=== PATIENT | female | born 1950 | race Caucasian/White ===

== ENCOUNTER → 2018-10-29 13:33 | Outpatient (CLI) | payer MEDICARE, OTHER, SELFPAY ==
--- NOTE | 2018-10-29 | DI.MG.S_ITS ---
BILATERAL DIGITAL DIAGNOSTIC MAMMOGRAM 3D/2D WITH AUGMENTATION: 10/29/2018 CLINICAL: Right breast pain. Comparison is made to exams dated: 01/07/2017 mammogram, 04/14/2012 mammogram, and 08/08/2009 mammogram - [facility]. There are scattered fibroglandular elements in both breasts. No significant masses, calcifications, or other findings are seen in either breast. IMPRESSION: NEGATIVE There is no abnormality seen in the right breast to correspond with the pain in the lower aspect, however, clinical followup is recommended. There is no mammographic evidence of malignancy. A 1 year screening mammogram is recommended. This exam was interpreted at Station ID: [id number]. NOTE: For mammograms, a report in lay terms will be sent to the patient. Approximately 15% of breast malignancies will not be visualized mammographically. In the management of a palpable breast mass, a negative mammogram must not discourage biopsy of a clinically suspicious lesion. Electronically Signed By: Jairo brewer/lenore:10/29/2018 15:18:54 letter sent: Clinical Evaluation ACR BI-RADS Category 1: Negative 3341F
== END ==
PROVIDERS: Family Provider Family Medicine; PCP Family Medicine; Visit Provider Family Medicine
DX: R92.8 Other abnormal and inconclusive findings on diagnostic imaging of breast (principal); N64.4 Mastodynia
CPT/HCPCS: 77066; G0279

== ENCOUNTER 2019-07-19 13:21 | Emergency (ER) | payer MEDICARE, OTHER, SELFPAY ==
[2019-07-19 13:30] VITALS: BP 137/89; PULSE 64; RESP 14; TEMP 36.3; O2SAT 99
[2019-07-19 14:00] VITALS: BP 124/70; PULSE 64; RESP 14; O2SAT 98
--- NOTE | 2019-07-19 14:05 | DI.CT.S_ITS ---
PROCEDURE: CT HEAD/BRAIN WO CON INDICATIONS: left arm and leg numbness, hit head a few days ago TECHNIQUE: Noncontrast 4.5 mm thick angled axial sections acquired from the foramen magnum to the vertex, with coronal and sagittal reformats. For radiation dose reduction, the following was used: automated exposure control, adjustment of mA and/or kV according to patient size. COMPARISON: None. FINDINGS: Image quality: Diagnostic. CSF spaces: Basal cisterns are patent. No extra-axial fluid collections. Ventricles are normal in size and shape. Brain: No midline shift. No intracranial masses or hemorrhage. [place]-white matter interface is normal. Incidental note is made of a prominent calcification along the midline falx. Subtle areas of low attenuation are seen within the periventricular and deep white matter of the supratentorial brain. Skull and face: Calvarium and visualized facial bones are intact, without suspicious lesions. Incidental note is made of a prominent jugular on the right, which abuts the right internal auditory canal. Sinuses: Visualized sinuses and mastoids are clear. IMPRESSION: 1. No acute hemorrhage. 2. Probable mild chronic small vessel ischemic changes. Dictated by: Pancho Orantes M.D. on 07/19/2019 at 13:26 Approved by: Pancho Orantes M.D. on 07/19/2019 at 13:28
[2019-07-19 14:30] LABS: Add Manual Diff / Slide Review NO; Basophils Absolute Auto 0 /uL (0-100); Basophils Percent Auto 0.7 % (0-2); Eosinophils Absolute Auto 100 /uL (0-450); Eosinophils Percent Auto 1.6 % (2-4); Hematocrit 37.9 % (36-46); Hemoglobin 13.3 g/dL (12.0-16.0); Lymphocytes Absolute Auto 1600 /uL (1100-4500); Lymphocytes Percent Auto 24.9 % (25-40); Mean Corpuscular HGB Conc 35.1 % (30-36); Mean Corpuscular Hemoglobin 32.5 PG (26-34); Mean Corpuscular Volume 92.8 fL (80-100); Monocytes Absolute Auto 500 /uL (0-900); Monocytes Percent Auto 7.5 % (3-14); Neutrophils Absolute Auto 4300 /uL (1500-7000); Neutrophils Percent Auto 65.3 % (50-75); Platelet Count 265 X10^3/uL (150-400); Red Blood Cell Count 4.08 X10^6/uL (4.0-5.2); Red Cell Distribution Width 13.1 % (11.6-14.8); White Blood Cell Count 6.5 X10^3/uL (4.5-11.0)
--- NOTE | 2019-07-19 14:37 | ED_ITS ---
HPI - Neuro Symptoms/Deficit General Chief Complaint: Neuro Symptoms/Deficit Stated Complaint: L ARM NUMBNESS/PAIN/HEAD Time Seen by Provider: 07/19/19 13:44 Source: patient Mode of arrival: ambulatory Limitations: no limitations History of Present Illness HPI Narrative: Patient is 69-year-old female who presents with left hand numbness and left leg numbness. She says she has had left hand numbness from about her mid forearm down to her fingertips off and on for couple of days. Today she had some left leg tingling. She apparently fell and hit her head no loss of consciousness but has had. She called her PCP who recommended she come to the ED further evaluation. She has no weakness no difficulty speaking no facial droop no other extremity complaints. She felt heart palpitations she has a history of PVCs, she thought she might have had a stroke from her heart palpitation. She no longer has heart palpitations. She takes metoprolol only for palpitations. Onset (ago): day(s) On Anticoagulants: No Associated symptoms: denies other symptoms Related Data Home Medications Medication Instructions Recorded Confirmed metoprolol succinate [Toprol XL] 50 mg PO DAILY #0 01/20/13 07/19/19 clonazepam 0.5 mg PO BID PRN 07/19/19 Allergies Allergy/AdvReac Type Severity Reaction Status Date / Time quinine Allergy Unknown RASH Verified 07/19/19 14:08 Sulfa (Sulfonamide Allergy Unknown RASH Verified 07/19/19 14:08 Antibiotics) codeine AdvReac Severe NAUSEA Verified 07/19/19 14:08 Review of Systems Review of Systems GENERAL: Denies chills, fatigue, malaise, fever, sweats, travel HEENT: Denies sinus pain, ear pain, sore throat, difficulty swallowing, neck pain RESPIRATORY: Denies dyspnea, cough, wheezing, hemoptysis, sputum. CARDIOVASCULAR: Denies chest pain, palpitations, orthopnea, edema GASTROINTESTINAL: Denies nausea, vomiting, abdominal pain, diarrhea, constipation, melena. : Denies dysuria, frequency, incontinence, hematuria, urinary retention, flank pain. MUSCULOSKELETAL: Denies weakness, joint pain, or bony pain SKIN: No rash, no erythema, no pruritus NEUROLOGIC: See HPI PSYCHIATRIC: No concerning psychosocial issues. 12 point review of systems is negative except for those stated above and [facility] Medical History PVCs (premature ventricular contractions) (Acute) Social History Smoking Status: Never smoker Social History Smoking Status: Never smoker Exam Initial Vital Signs Initial Vital Signs: Vital Signs Temperature 97.4 F L 07/19/19 13:30 Pulse Rate 64 07/19/19 13:30 Respiratory Rate 14 07/19/19 13:30 Blood Pressure 137/89 07/19/19 13:30 Pulse Oximetry 99 07/19/19 13:30 GENERAL: Well-appearing, well-nourished and in no acute distress. HEENT: Head atraumatic,EOMI, pupils reactive, face symmetric, moist mucous membranes CARDIOVASCULAR: Regular rate and rhythm without murmurs, rubs or gallops. RESPIRATORY: Breath sounds equal bilaterally, no wheezes rales or rhonchi. ABDOMEN: Soft, nontender. Normoactive bowel sounds all 4 quadrants. No guarding or rebound. EXTREMITIES: Normal range of motion, no clubbing or edema. Neurovascularly intact NEUROLOGICAL: Alert and oriented x4.Normal gait and speech. Cranial nerves II through XII grossly intact. Good ywixou-yr-bwow, good wjxq-tj-kose, strength equal bilaterally, no dysarthria or aphasia, sensation in tact to soft touch bilaterally, no visual changes, no facial droop SKIN: Warm, dry, no laceration, no petechiae, no rashes or lesions. Scores ABCD2 Age >= 60 years: yes Initial BP. Either SBP >= 140 or DBP >= 90.: no Clinical features of the TIA: other symptoms Duration of symptoms: >= 60 minutes History of diabetes: no ABCD2 Score: 3 NIH Stroke Scale Level of Conciousness: Alert, keenly responsive Ask month/age: Answers both questions correctly. Open/close eyes, close hand: Performs both tasks correctly Best gaze horizontal: Normal Visual gonzales: No visual loss Facial palsy: Normal symetrical movement Left arm drift: No drift for full 10 sec Right arm drift: No drift for full 10 sec Left leg drift: No drift for full 10 sec Right leg drift: No drift for full 10 sec Limb ataxia: Absent Sensory on face/arms/legs: Normal, no sensory loss Best language: No aphasia, normal Dysarthria: Normal Extinction or inattention: No abnormality Total NIH Stroke scale score: 0 Course Orders Ordered: ED Orders 07/19/19 14:05 CT head/brain wo con Stat 07/19/19 14:12 EKG-12 Lead Stat 07/19/19 14:20 Basic Metabolic Panel Stat Complete Blood Count AUTO DIFF Stat Partial Thromboplastin Time Stat Prothrombin Time INR Stat 07/19/19 14:40 Urine Drug Screen, Rapid Stat Urine Microscopic Stat Discontinued Medications Aspirin (Aspirin Chew) 324 mg PO NOW ONE Stop: 07/19/19 15:28 Last Admin: 07/19/19 15:45 Dose: 81 mg Sodium Chloride (Normal Saline 0.9%) 1,000 mls @ 150 mls/hr IV CONT ELO Last Infusion: 07/19/19 15:46 Dose: 150 mls/hr Admin: 07/19/19 14:45 Dose: 150 mls/hr Vital Signs - 8 hr 07/19/19 13:30 07/19/19 14:00 07/19/19 15:00 Temperature 97.4 F L Pulse Rate 64 64 62 Respiratory Rate 14 14 16 Blood Pressure 137/89 Blood Pressure [Left Arm] 124/70 132/64 Pulse Oximetry 99 98 98 07/19/19 15:47 Temperature 96.4 F L Pulse Rate 68 Respiratory Rate 18 Blood Pressure 128/64 Blood Pressure [Left Arm] Pulse Oximetry 99 MDM - Neuro Symptoms/Deficit Lab Data Attestation: I reviewed the patient's lab results. Result diagrams: 07/19/19 14:20 07/19/19 14:20 Lab Results 07/19/19 07/19/19 07/19/19 Range/Units 14:20 14:20 14:20 WBC 6.5 (4.5-11.0) X10^3/uL RBC 4.08 (4.0-5.2) X10^6/uL Hgb 13.3 (12.0-16.0) g/dL Hct 37.9 (36-46) % MCV 92.8 (80-100) fL MCH 32.5 (26-34) PG MCHC 35.1 (30-36) % RDW 13.1 (11.6-14.8) % Plt Count 265 (150-400) X10^3/uL Neut % (Auto) 65.3 (50-75) % Lymph % (Auto) 24.9 L (25-40) % [place] % (Auto) 7.5 (3-14) % Eos % (Auto) 1.6 L (2-4) % Baso % (Auto) 0.7 (0-2) % Neut # (Auto) 4300 (6505-5913) /uL Lymph # (Auto) 1600 (4399-4815) /uL [place] # (Auto) 500 (0-900) /uL Eos # (Auto) 100 (0-450) /uL Baso # (Auto) 0 (0-100) /uL PT 11.1 (10.1-12.7) SECONDS INR 1.0 (0.9-1.3) APTT 33 (26.4-36.2) SECONDS Sodium 141 (137-145) mmol/L Potassium 4.0 (3.4-5.1) mmol/L Chloride 106 (98-107) mmol/L Carbon Dioxide 27 (22-32) mmol/L BUN 14 (7-17) mg/dL Creatinine 0.60 (0.52-1.04) mg/dL Estimated GFR > 60.0 (>60) mL/min BUN/Creatinine Ratio 23.3 H (6-22) Glucose 106 (80-110) mg/dL Calcium 9.3 (8.4-10.2) mg/dL Urine RBC (0-5/HPF) Urine WBC (0-5/HPF) Ur Squamous Epith Cells (0-5/HPF) Urine Bacteria (None) Ur Culture Indicated? Urine Opiates Screen (Negative) Ur Oxycodone Screen (Negative) Urine Methadone Screen (Negative) Ur Barbiturates Screen (Negative) U Tricyclic Antidepress (Negative) Ur Phencyclidine Scrn (Negative) Ur Amphetamines Screen (Negative) U Methamphetamines Scrn (Negative) Ur MDMA Scrn (Ecstasy) (Negative) U Benzodiazepines Scrn (Negative) Urine Cocaine Screen (Negative) U Marijuana (THC) Screen (Negative) 07/19/19 07/19/19 Range/Units 14:40 14:40 WBC (4.5-11.0) X10^3/uL RBC (4.0-5.2) X10^6/uL Hgb (12.0-16.0) g/dL Hct (36-46) % MCV (80-100) fL MCH (26-34) PG MCHC (30-36) % RDW (11.6-14.8) % Plt Count (150-400) X10^3/uL Neut % (Auto) (50-75) % Lymph % (Auto) (25-40) % [place] % (Auto) (3-14) % Eos % (Auto) (2-4) % Baso % (Auto) (0-2) % Neut # (Auto) (9837-5061) /uL Lymph # (Auto) (7167-2862) /uL [place] # (Auto) (0-900) /uL Eos # (Auto) (0-450) /uL Baso # (Auto) (0-100) /uL PT (10.1-12.7) SECONDS INR (0.9-1.3) APTT (26.4-36.2) SECONDS Sodium (137-145) mmol/L Potassium (3.4-5.1) mmol/L Chloride (98-107) mmol/L Carbon Dioxide (22-32) mmol/L BUN (7-17) mg/dL Creatinine (0.52-1.04) mg/dL Estimated GFR (>60) mL/min BUN/Creatinine Ratio (6-22) Glucose (80-110) mg/dL Calcium (8.4-10.2) mg/dL Urine RBC None seen (0-5/HPF) Urine WBC 0-1/hpf (0-5/HPF) Ur Squamous Epith Cells 0-1 /hpf (0-5/HPF) Urine Bacteria None seen (None) Ur Culture Indicated? Cult not indicated Urine Opiates Screen Negative (Negative) Ur Oxycodone Screen Negative (Negative) Urine Methadone Screen Negative (Negative) Ur Barbiturates Screen Negative (Negative) U Tricyclic Antidepress Negative (Negative) Ur Phencyclidine Scrn Negative (Negative) Ur Amphetamines Screen Negative (Negative) U Methamphetamines Scrn Negative (Negative) Ur MDMA Scrn (Ecstasy) Negative (Negative) U Benzodiazepines Scrn Negative (Negative) Urine Cocaine Screen Negative (Negative) U Marijuana (THC) Screen Negative (Negative) Point of Care Testing Glucose POC 92 Urine Dip Bedside Urine Glucose Negative Bedside Urine Bilirubin - Negative Bedside Urine Ketone - Negative Urine Specific Perry 1.015 Bedside Urine Occult Blood +/- Bedside Urine pH 5.5 Bedside Urine Protein - Negative Bedside Urine Urobilinogen - Negative Bedside Urine Nitrite - Negative Bedside Urine Leukocytes - Negative Esterase Imaging Data CT scan - head: Radiologist's impression: PROCEDURE: CT HEAD/BRAIN WO CON INDICATIONS: left arm and leg numbness, hit head a few days ago TECHNIQUE: Noncontrast 4.5 mm thick angled axial sections acquired from the foramen magnum to the vertex, with coronal and sagittal reformats. For radiation dose reduction, the following was used: automated exposure control, adjustment of mA and/or kV according to patient size. COMPARISON: None. FINDINGS: Image quality: Diagnostic. CSF spaces: Basal cisterns are patent. No extra-axial fluid collections. Ventricles are normal in size and shape. Brain: No midline shift. No intracranial masses or hemorrhage. [place]-white matter interface is normal. Incidental note is made of a prominent calcification along the midline falx. Subtle areas of low attenuation are seen within the periventricular and deep white matter of the supratentorial brain. Skull and face: Calvarium and visualized facial bones are intact, without suspicious lesions. Incidental note is made of a prominent jugular on the right, which abuts the right internal auditory canal. Sinuses: Visualized sinuses and mastoids are clear. IMPRESSION: 1. No acute hemorrhage. 2. Probable mild chronic small vessel ischemic changes. Dictated by: Pancho Orantes M.D. on 07/19/2019 at 13:26 ECG Data Attestation: I personally reviewed and interpreted this ECG as follows: Prior ECG tracings: not available for review Interpretation: Normal sinus rhythm rate 59 p.r. interval 161 QRS [address] changes no T-wave inversions no priors to compare MDM Narrative Medical decision making narrative: Patient overall has no focal neurologic deficits. She does have possibly some microvascular chronic changes on her head CT. His at this time she has no risk factors for CVA. I recommend that she take at aspirin 81 mg daily and have follow-up with her PCP. Also she may require further outpatient evaluation such as an MRI. I also discussed with her specific warning signs of when to return to the ED. Discharge Plan Departure Patient Disposition: Home Clinical Impression: Peripheral neuropathy Qualifiers: Peripheral neuropathy type: polyneuropathy, unspecified Qualified Code(s): G62.9 - Polyneuropathy, unspecified Discharge Date/Time: 07/19/19 15:48 Interventions: ED Discharge Assessment Last Done: 07/19/19 15:47 Instructions: DI for Transient Ischemic Attack Activity Restrictions/Additional Instructions: *You have been diagnosed with peripheral neuropathy *What to do: At this time blood work and head CT are negative *Continue to take medications as directed Aspirin 81 mg once daily to help prevent stroke and heart attack *Follow up with your primary care provider in 2-3 days *Return to ER if you should have arm or leg weakness facial drooping difficulty speaking visual loss or any new, worsening or concerning symptoms Prescriptions: No Action metoprolol succinate [Toprol XL] 50 MG tablet extended release 24 hr 50 mg PO DAILY Qty: 0 RF: 0 clonazepam 0.5 mg tablet 0.5 mg PO BID PRN (Reason: Anxiety) RF: 0 Referrals: Caitlyn Miles MD [Primary Care Provider] -
[2019-07-19 14:38] LABS: Prothrombin Time 11.1 SECONDS (10.1-12.7)
[2019-07-19 14:40] LABS: PTT Partial Thromboplastin Tim 33 SECONDS (26.4-36.2)
[2019-07-19] MEDS: SODIUM CHLORIDE 0.9% 1,000 ML 150 ML IV (14:45)
[2019-07-19 14:48] LABS: BUN Creatinine Ratio 23.3 (6-22); Blood Urea Nitrogen 14 mg/dL (7-17); Calcium 9.3 mg/dL (8.4-10.2); Carbon Dioxide 27 mmol/L (22-32); Chloride 106 mmol/L (98-107); Estimated Glomerular Filt Rate > 60.0 mL/min (>60); Glucose 106 mg/dL (80-110); HEMOLYSIS < 15 (0-50); Sodium 141 mmol/L (137-145)
[2019-07-19 14:51] LABS: Bacteria Urine None Seen; RBC Urine None Seen (0-5/HPF)
[2019-07-19 14:58] LABS: Urine Amphetamines Negative (Negative); Urine Barbiturates Negative (Negative); Urine Benzodiazepines Negative (Negative); Urine Cocaine Negative (Negative); Urine MDMA Negative (Negative); Urine Methadone Negative (Negative); Urine Methamphetamines Negative (Negative); Urine Morphine/Opi cutoff 2000 Negative (Negative); Urine Oxycodone Negative (Negative); Urine Phencyclidine Negative (Negative); Urine Tetrahydrocannabinol Negative (Negative); Urine Tricyclic Antidepressant Negative (Negative)
[2019-07-19 15:00] VITALS: BP 132/64; PULSE 62; RESP 16; O2SAT 98
[2019-07-19 15:01] LABS: Culture Indicated Urine Cult Not Indicated; Squamous Epithelial Cell Urine 0-1 /HPF (0-5/HPF); WBC Urine 0-1/HPF (0-5/HPF)
[2019-07-19] MEDS: ASPIRIN 81 MG TAB 324 MG PO (15:45)
[2019-07-19 15:47] VITALS: BP 128/64; PULSE 68; RESP 18; TEMP 35.8; O2SAT 99
== END 2019-07-19 15:48 | disposition home or self-care (01) ==
PROVIDERS: Emergency Provider Emergency Medicine; PCP Internal Medicine
DX: G62.9 Polyneuropathy, unspecified (principal)
CPT/HCPCS: 36591; 70450; 80048; 80305; 81003; 81015; 82962; 85025; 85610; 85730; 93005; 96360; 99283; 99285

== ENCOUNTER → 2019-07-21 09:15 | Outpatient (CLI) | payer MEDICARE, OTHER, SELFPAY ==
[2019-07-21 10:50] LABS: Add Manual Diff / Slide Review NO; Basophils Absolute Auto 0 /uL (0-100); Basophils Percent Auto 0.5 % (0-2); Eosinophils Absolute Auto 200 /uL (0-450); Eosinophils Percent Auto 2.6 % (2-4); Hematocrit 39.8 % (36-46); Hemoglobin 13.8 g/dL (12.0-16.0); Lymphocytes Absolute Auto 2000 /uL (1100-4500); Mean Corpuscular HGB Conc 34.8 % (30-36); Mean Corpuscular Hemoglobin 32.4 PG (26-34); Mean Corpuscular Volume 93.2 fL (80-100); Monocytes Absolute Auto 600 /uL (0-900); Monocytes Percent Auto 8.3 % (3-14); Neutrophils Absolute Auto 4300 /uL (1500-7000); Neutrophils Percent Auto 60.6 % (50-75); Platelet Count 285 X10^3/uL (150-400); Red Blood Cell Count 4.27 X10^6/uL (4.0-5.2); Red Cell Distribution Width 13.3 % (11.6-14.8)
[2019-07-21 11:30] LABS: Alanine Aminotransferase 16 IU/L (9-52); Albumin 4.4 g/dL (3.5-5.0); Albumin Globulin Ratio 1.5 (1.0-2.8); Alkaline Phosphatase 73 U/L (38-126); Aspartate Aminotransferase 25 IU/L (14-36); Bilirubin Total 0.7 mg/dL (0.2-1.3); Blood Urea Nitrogen 12 mg/dL (7-17); Calcium 9.7 mg/dL (8.4-10.2); Carbon Dioxide 27 mmol/L (22-32); Chloride 103 mmol/L (98-107); Estimated Glomerular Filt Rate > 60.0 mL/min (>60); Globulin 2.9 g/dL (1.7-4.1); Glucose 85 mg/dL (80-110); HEMOLYSIS < 15 (0-50); Potassium 4.5 mmol/L (3.4-5.1); Sodium 139 mmol/L (137-145); Total Protein 7.3 g/dL (6.3-8.2)
[2019-07-21 11:46] LABS: Free T3, Triiodothyronine Free 3.43 pg/mL (2.77-5.27); Free T4, Direct Thyroxine 0.96 ng/dL (0.78-2.19)
[2019-07-21 12:00] LABS: Thyroid Stimulating Hormone 3.92 uIU/mL (0.47-4.68)
== END ==
PROVIDERS: PCP Internal Medicine; Visit Provider Internal Medicine
DX: R00.2 Palpitations (principal)
CPT/HCPCS: 36415; 80053; 84439; 84443; 84481; 85025

== ENCOUNTER → 2019-07-29 11:23 | Outpatient (CLI) | payer MEDICARE, OTHER, SELFPAY ==
--- NOTE | 2019-07-29 | DI.MRI.S_ITS ---
PROCEDURE: MR STROKE Pre- and post-contrast brain MRI, non-contrast brain MR angiogram, pre- and postcontrast neck MR angiogram INDICATIONS: Transient cerebral ischemic attack, unspecified TECHNIQUE: Brain: Noncontrast axial T1 spin echo, axial T2 fast spin echo, sagittal and axial FLAIR, coronal T2 fast spin echo, axial gradient echo, axial diffusion and ADC through the brain. After the administration of contrast, axial 3D VIBE of the cranial vasculature and brain. Brain MRA: Non-contrast 3-D time of flight MR angiogram, with multiple khcdgeu-dhldutdph-zvmiztodzx (MIP) reformats performed. Neck MRA: Axial and sagittal TruFISP through the neck. Coronal dynamic MR angiogram during administration of contrast in the arterial and venous phases, with 3-dimenstional uesnerr-rtuknwbvx-dqcvsarpxe (MIP) reformats constructed from subtraction images. COMPARISON: Noncontrast head CT 07/19/2019 FINDINGS: Image quality: Excellent. BRAIN: CSF spaces: Ventricles are normal in size and shape. Basal cisterns are patent. No extra-axial fluid collections. Brain: No intracranial bleeds or mass effects. [place]-white matter interface is normal. Diffusion weighted images show no acute ischemic insults. Brainstem appears normal. Normal intravascular flow voids are present. No abnormal intracranial enhancement. Calcification of the flax. Skull and face: Calvarial marrow signal is normal. Orbits appear normal. Sinuses: Sinuses and mastoids are clear. BRAIN MR ANGIOGRAM: Anterior circulation: Intracranial internal carotid arteries are normal in size and enhancement. The flow within the paired anterior cerebral arteries is normal and symmetric. The flow within the middle cerebral arteries is normal and symmetric. The anterior communicating artery is seen. No stenoses, occlusions, or aneurysms. Posterior circulation: The visualized portions of the vertebral arteries demonstrate normal caliber, and join to form a normal appearing basilar artery. The flow within the posterior cerebral arteries is normal and symmetric. Posterior communicating arteries are seen. No stenoses, occlusions, or aneurysms. NECK MR ANGIOGRAM: Carotids: Great vessels demonstrate a conventional anatomy as they arise from the aortic arch. The origins of the common carotid arteries appear patent. The calibers and courses of both common carotid arteries are normal. The bifurcation regions appear normal bilaterally. The internal carotid arteries demonstrate normal course and caliber. Posterior circulation: The origins of the vertebral arteries appear patent. More superior portions of both vertebral arteries demonstrate normal course and caliber, and join to form a normal appearing basilar artery. Miscellaneous: Subclavian arteries appear patent. Pre-contrast images through the neck show no soft tissue abnormalities. IMPRESSION: BRAIN MRI: No acute infarct. BRAIN MR ANGIOGRAM: No large vessel filling defect. No significant stenosis or aneurysm. NECK MR ANGIOGRAM: No significant stenosis. No dissection seen. Dictated by: Joshua Fragoso M.D. on 07/29/2019 at 17:25 Approved by: Joshua Fragoso M.D. on 07/29/2019 at 17:33
== END ==
PROVIDERS: PCP Internal Medicine; Visit Provider Internal Medicine
DX: G45.9 Transient cerebral ischemic attack, unspecified (principal)
CPT/HCPCS: 70548; 70553; A9579

== ENCOUNTER → 2019-08-04 08:05 | Outpatient (CLI) | payer MEDICARE, OTHER, SELFPAY ==
--- NOTE | 2019-08-04 | DI.ECHO.S_ITS ---
[facility] +---------+ : : [address] : : : : [place], [place] : : : : [id number] : : : : Phone: [phone] Echocardiogram Report + + :Name: CORNELL JAY Study Date: 08/04/2019 Height: 66 in : :[facility] Exam Location: [facility] Weight: 154 lb : : Gender: Female BSA: 1.8 m2 : :: 1950 Age: 69 yrs BP: 105/65 mmHg: :Reason For Study: TIA : : Performed By: Oscar Keane : :Referring: KARLA RIVERO L : + + Interpretation Summary Normal sinus rhythm. Normal LV size, wall thickness, wall motion and LV systolic function. EF is 60-65%. Mild LA enlargement; otherwise normal chamber sizes. No significant valvular abnormalities. No prior study available for comparison. Procedure: A two-dimensional transthoracic echocardiogram with color flow and Doppler was performed. The study quality was technically adequate. Images from the parasternal window were difficult to obtain and are suboptimal in quality. There is no prior echocardiogram noted for this patient. The patient was in normal sinus rhythm during the exam. The patient had occasional PVCs during the exam. Left Ventricle: The left ventricle is normal in size. There is normal left ventricular wall thickness. The ejection fraction is estimated to be 60-65%. There are no focal wall motion abnormalities. Right Ventricle: The right ventricle is normal in size and function. Atria: The left atrium is mildly dilated. Right atrial size is normal. The interatrial septum is intact with no evidence for an atrial septal defect. Mitral Valve: There is a flat closure plane of the the mitral valve leaflets. There is trace mitral regurgitation. Aortic Valve: The aortic valve is trileaflet. The aortic valve opens well. No aortic regurgitation is present. Tricuspid Valve: The tricuspid valve is normal in structure and function. There is trace tricuspid regurgitation. The right ventricular systolic pressure is estimated to be at least 22 mmHg based on an estimated right atrial pressure of 3 mm Hg. Pulmonic Valve: The pulmonic valve is not well visualized. Great Vessels: The aortic root is normal size. The dimensions of the ascending aorta are normal. The pulmonary artery is normal size. The IVC is of normal diameter and collapses greater than 50% with a sniff. This suggests a low right atrial pressure of 3 mm Hg. Pericardium/ Pleura There is no pericardial effusion. There is no pleural effusion. MMode/2D Measurements & Calculations LVIDd: 4.4 cm LVOT diam: 2.2 cm LVIDs: 2.9 cm Ao root diam: 3.4 cm FS: 34.6 % Aortic Jxn: 2.7 cm EPSS: 0.73 cm asc Aorta Diam: 3.3 cm IVSd: 0.87 cm Ao Arch Diam (Prox Trans): 2.8 cm LVPWd: 0.69 cm LV villeda. diameter/BSA (cm/m^2): 2.5 LV sys. diameter/BSA (cm/m^2): 1.6 LA A2 area: 22.1 cm2 RA long axis: 4.5 cm LA A4 area: 20.0 cm2 RA area: 14.6 cm2 LA length (vol): 5.6 cm RA vol: 40.2 ml LA vol: 67.2 ml RA : 22.5 ml/m2 LA vol index: 37.6 ml/m2 IVC diam: 1.8 cm Doppler Measurements & Calculations Ao V2 max: 148.4 cm/sec LVOT Max Enrrique: 109.0 cm/sec Ao V2 mean: 116.5 cm/sec LV V1 max P.8 mmHg Ao max P.8 mmHg LV V1 VTI: 26.8 cm Ao mean P.6 mmHg FAM(I,D): 3.2 cm2 Ao V2 VTI: 31.0 cm FAM(V,D): 2.7 cm2 sev ratio: 0.86 FAM indexed to BSA (cm^2/m^2): 1.8 MV E max enrrique: 94.4 cm/sec TR max enrrique: 217.7 cm/sec MV A max enrrique: 104.9 cm/sec TR max P.9 mmHg MV E/A: 0.90 PA V2 max: 69.9 cm/sec Med Peak E' Enrrique: 4.1 cm/sec PA V2 mean: 47.5 cm/sec E/E' med: 22.9 PA mean P.0 mmHg Lat Peak E' Enrrique: 6.2 cm/sec PA pr(Accel): 29.1 mmHg E/E' lat: 15.2 PA Accel Time: 0.11 sec E/e' average: 19.1 MV dec time: 0.23 sec SV(LVOT): 100.3 ml Electronically signed by: Selina Barajas M.D. on Reading Physician:08/05/2019 04:31 AM
== END ==
PROVIDERS: PCP Internal Medicine; Visit Provider Internal Medicine
DX: G45.9 Transient cerebral ischemic attack, unspecified (principal)
CPT/HCPCS: 93306

== ENCOUNTER → 2020-01-05 09:12 | Outpatient (CLI) | payer MEDICARE, SELFPAY ==
--- NOTE | 2020-01-05 | DI.MG.S_ITS ---
BILATERAL DIGITAL SCREENING MAMMOGRAM 3D/2D WITH CAD WITH AUGMENTATION: 01/05/2020 CLINICAL: Patient presents for routine screening. S/P bilateral augmentation. Family history of breast cancer. Comparison is made to exams dated: 10/29/2018 mammogram - [facility], 01/08/2017 mammogram, and 01/07/2017 mammogram - [facility]. There are scattered fibroglandular elements in both breasts. Current study was also evaluated with a Computer Aided Detection (CAD) system. Bilateral breast implants are intact. No significant masses, calcifications, or other findings are seen in either breast. There has been no significant interval change. IMPRESSION: NEGATIVE There is no mammographic evidence of malignancy. A 1 year screening mammogram is recommended. This exam was interpreted at Station ID: [id number]. NOTE: For mammograms, a report in lay terms will be sent to the patient. Approximately 15% of breast malignancies will not be visualized mammographically. In the management of a palpable breast mass, a negative mammogram must not discourage biopsy of a clinically suspicious lesion. Electronically Signed By: Jairo brewer/lenore:01/05/2020 10:07:31 letter sent: Normal Exam ACR BI-RADS Category 1: Negative 3341F
== END ==
PROVIDERS: PCP Internal Medicine; Referring Provider Internal Medicine; Visit Provider Internal Medicine
DX: Z12.31 Encounter for screening mammogram for malignant neoplasm of breast (principal); Z85.3 Personal history of malignant neoplasm of breast; Z98.82 Breast implant status
CPT/HCPCS: 77063; 77067

== ENCOUNTER → 2020-03-08 07:41 | Outpatient (CLI) | payer MEDICARE, OTHER, SELFPAY ==
[2020-03-08 08:32] LABS: Alanine Aminotransferase 23 IU/L (<35); Albumin 4.7 g/dL (3.5-5.0); Albumin Globulin Ratio 1.5 (1.0-2.8); Alkaline Phosphatase 73 U/L (38-126); Aspartate Aminotransferase 28 IU/L (14-36); BUN Creatinine Ratio 30.5 (6-22); Bilirubin Total 0.8 mg/dL (0.2-1.3); Blood Urea Nitrogen 18 mg/dL (7-17); Calcium 9.6 mg/dL (8.4-10.2); Carbon Dioxide 28 mmol/L (22-32); Chloride 104 mmol/L (98-107); Cholesterol 208 mg/dL (140-199); Estimated Glomerular Filt Rate > 60.0 mL/min (>60); Globulin 3.1 g/dL (1.7-4.1); Glucose 93 mg/dL (80-110); HDL Cholesterol 46 mg/dL (40-60); HEMOLYSIS < 15 (0-50); LDL Cholesterol Calculated 144 mg/dL (<100); Potassium 4.3 mmol/L (3.4-5.1); Sodium 141 mmol/L (137-145); Total Protein 7.8 g/dL (6.3-8.2); Triglycerides 92 mg/dL (35-150)
[2020-03-08 08:36] LABS: High Sensitivity CRP - Cardiac 0.2 mg/L (1.0-3.0)
[2020-03-08 09:01] LABS: TSH w/ Reflex to FT4 4.84 uIU/mL (0.47-4.68)
[2020-03-08 09:31] LABS: Free T4, Direct Thyroxine 0.86 ng/dL (0.78-2.19)
[2020-03-09 07:17] LABS: Apolipoprotein A1 163 mg/dL (116-209); Apolipoprotein B 105 mg/dL (<90)
== END ==
PROVIDERS: PCP Internal Medicine; Referring Provider Internal Medicine; Visit Provider Internal Medicine
DX: E78.5 Hyperlipidemia, unspecified (principal); I25.10 Atherosclerotic heart disease of native coronary artery without angina pectoris; R79.89 Other specified abnormal findings of blood chemistry
CPT/HCPCS: 36415; 80053; 80061; 82172; 84439; 84443; 86140

== ENCOUNTER → 2020-05-30 11:21 | Outpatient (CLI) | payer MEDICARE, OTHER, SELFPAY ==
[2020-05-30 13:31] LABS: Alanine Aminotransferase 17 IU/L (<35); Albumin 4.6 g/dL (3.5-5.0); Albumin Globulin Ratio 1.8 (1.0-2.8); Alkaline Phosphatase 80 U/L (38-126); Aspartate Aminotransferase 25 IU/L (14-36); BUN Creatinine Ratio 30.5 (6-22); Bilirubin Total 0.7 mg/dL (0.2-1.3); Blood Urea Nitrogen 18 mg/dL (7-17); Calcium 9.8 mg/dL (8.4-10.2); Carbon Dioxide 27 mmol/L (22-32); Chloride 104 mmol/L (98-107); Cholesterol 205 mg/dL (140-199); Estimated Glomerular Filt Rate > 60.0 mL/min (>60); Globulin 2.6 g/dL (1.7-4.1); Glucose 92 mg/dL (80-110); HDL Cholesterol 52 mg/dL (40-60); HEMOLYSIS < 15 (0-50); LDL Cholesterol Calculated 134 mg/dL (<100); Magnesium 2.3 mg/dL (1.6-2.3); Potassium 4.6 mmol/L (3.4-5.1); Sodium 139 mmol/L (137-145); Total Protein 7.2 g/dL (6.3-8.2); Triglycerides 96 mg/dL (35-150)
[2020-05-30 13:32] LABS: C-Reactive Protein Quant < 0.5 mg/dL (<1.0)
[2020-06-05 20:19] LABS: High Sensitivity CRP - Cardiac 0.2 mg/L (1.0-3.0)
== END ==
PROVIDERS: PCP Internal Medicine; Referring Provider Internal Medicine; Visit Provider Internal Medicine
DX: R00.2 Palpitations (principal); E78.5 Hyperlipidemia, unspecified
CPT/HCPCS: 36415; 80053; 80061; 83735; 86140

== ENCOUNTER → 2020-06-14 09:27 | Outpatient (CLI) | payer MEDICARE, SELFPAY ==
[2020-06-14 10:54] LABS: High Sensitivity CRP - Cardiac 0.3 mg/L (1.0-3.0)
[2020-06-15 05:36] LABS: Apolipoprotein A1 170 mg/dL (116-209); Apolipoprotein B 108 mg/dL (<90)
== END ==
PROVIDERS: PCP Internal Medicine; Referring Provider Internal Medicine; Visit Provider Internal Medicine
DX: G45.9 Transient cerebral ischemic attack, unspecified (principal); E78.6 Lipoprotein deficiency; E78.5 Hyperlipidemia, unspecified
CPT/HCPCS: 36415; 82172; 86140

== ENCOUNTER → 2020-11-01 15:25 | Outpatient (CLI) | payer MEDICARE, OTHER, SELFPAY ==
[2020-11-01 15:57] LABS: D Dimer < 200 ng/mL (<230)
[2020-11-01 16:07] LABS: Alanine Aminotransferase 20 IU/L (<35); Albumin 4.3 g/dL (3.5-5.0); Albumin Globulin Ratio 1.5 (1.0-2.8); Alkaline Phosphatase 71 U/L (38-126); Aspartate Aminotransferase 26 IU/L (14-36); BUN Creatinine Ratio 39.7 (6-22); Bilirubin Total 0.4 mg/dL (0.2-1.3); Blood Urea Nitrogen 23 mg/dL (7-17); Calcium 9.5 mg/dL (8.4-10.2); Carbon Dioxide 28 mmol/L (22-32); Chloride 105 mmol/L (98-107); Estimated Glomerular Filt Rate > 60.0 mL/min (>60); Globulin 2.9 g/dL (1.7-4.1); Glucose 112 mg/dL (80-110); HEMOLYSIS < 15 (0-50); Magnesium 2.2 mg/dL (1.6-2.3); Potassium 4.7 mmol/L (3.4-5.1); Sodium 136 mmol/L (137-145); Total Protein 7.2 g/dL (6.3-8.2)
== END ==
PROVIDERS: PCP Internal Medicine; Referring Provider Physician Assistant; Visit Provider Physician Assistant
DX: M79.662 Pain in left lower leg (principal); I10 Essential (primary) hypertension
CPT/HCPCS: 36415; 80053; 83735; 85379

== ENCOUNTER → 2021-01-15 11:12 | Outpatient (CLI) | payer MEDICARE, OTHER, SELFPAY ==
--- NOTE | 2021-01-15 11:13 | DI.US.S_ITS ---
PROCEDURE: US PERIPH VENOUS LOW EXTREM LT INDICATIONS: calf pain x 3 weeks, clinical concern for dvt TECHNIQUE: Real-time imaging, as well as color and pulse Doppler interrogation, were performed of the lower extremity deep veins from the inguinal ligament to the popliteal fossa. COMPARISON: [facility], US, US VENOUS LEG DPLX UNI RT, 09/20/2015, 13:31. FINDINGS: The common femoral, femoral and popliteal veins are normally compressible, and free of intraluminal thrombus. Color and pulse Doppler demonstrate normal phasic intraluminal flow. There is normal augmentation response to distal compression maneuver. IMPRESSION: Negative for deep venous thrombosis. Dictated by: Hadley Thomas M.D. on 01/15/2021 at 10:55 Approved by: Hadley Thomas M.D. on 01/15/2021 at 10:55
== END ==
PROVIDERS: PCP Internal Medicine; Referring Provider Physician Assistant; Visit Provider Physician Assistant
DX: M79.662 Pain in left lower leg (principal)
CPT/HCPCS: 93971

== ENCOUNTER → 2021-01-18 12:50 | Outpatient (CLI) | payer MEDICARE, OTHER, SELFPAY ==
--- NOTE | 2021-01-18 12:59 | DIET.PN ---
Dietary Progress Note Assessment: 70y F [address] f/u for help with HLD, HTN, and weight management. Pt reports being good M-Th but not F-Sun on weekends regarding dietary and supplement compliance. Pt has been looking at fiber handout which has been helpful, she has been aiming to get 25g fiber per day. Pt concerned about lectins in grain and bernal foods. Pt has concerns regarding getting calcium into the bone, Vit D and K2, feels doesn't get enough calcium into diet because avoiding most dairy to support healthy cholesterol levels. HT: 5'5 WT: 159# Goal weight: 145# BMI: 26.5 Labs: TC 205 H, LDL 134 H Nutrition Diagnosis: 1. altered nutrition related laboratory values (lipids) r/t insufficient soluble fiber intake aeb TC 205, LDL 134, pt intolerant to statins, pt avoiding many high soluble fiber foods due to lectin content. 2. insufficient calcium intake r/t avoidance of most dairy products secondary to HLD aeb pt has osteopenia, pt unsure of amount of daily calcium intake. Interventions: 1. Encouraged pt to continue consuming high soluble fiber foods she is comfortable with. Pt can consider supplementing c konjac root. 2. Provided pt c calcium content of foods handout. Pt will track her daily calcium levels and supplement to reach DRI along with adequate vit D and K2. EER: 25g Fiber daily
== END ==
PROVIDERS: PCP Internal Medicine; Referring Provider Internal Medicine; Visit Provider Internal Medicine
DX: E78.5 Hyperlipidemia, unspecified (principal); I10 Essential (primary) hypertension; Z71.3 Dietary counseling and surveillance; Z68.26 Body mass index [BMI] 26.0-26.9, adult
CPT/HCPCS: 97803

== ENCOUNTER → 2021-01-22 13:53 | Outpatient (CLI) | payer MEDICARE, OTHER, SELFPAY | PROVIDERS: PCP Internal Medicine; Visit Provider Physician Assistant | DX: N34.3 Urethral syndrome, unspecified (principal) | CPT/HCPCS: 87086 ==

== ENCOUNTER → 2021-02-05 09:42 | Outpatient (CLI) | payer MEDICARE, OTHER, SELFPAY | PROVIDERS: PCP Internal Medicine; Visit Provider Physician Assistant | DX: N30.01 Acute cystitis with hematuria (principal) | CPT/HCPCS: 87086 ==

== ENCOUNTER → 2021-02-13 10:01 | Outpatient (CLI) | payer MEDICARE, OTHER, SELFPAY ==
--- NOTE | 2021-02-13 10:03 | DI.MG.S_ITS ---
BILATERAL DIGITAL SCREENING MAMMOGRAM 3D/2D WITH CAD WITH AUGMENTATION: 02/13/2021 CLINICAL: Routine screening. Family history of breast cancer. Comparison is made to exams dated: 01/05/2020 mammogram, 10/29/2018 mammogram - [facility], and 01/07/2017 mammogram - [facility]. There are scattered fibroglandular elements in both breasts. Current study was also evaluated with a Computer Aided Detection (CAD) system. Bilateral breast implants are intact. No significant masses, calcifications, or other findings are seen in either breast. There has been no significant interval change. IMPRESSION: NEGATIVE There is no mammographic evidence of malignancy. A 1 year screening mammogram is recommended. This exam was interpreted at Station ID: [id number]. NOTE: For mammograms, a report in lay terms will be sent to the patient. Approximately 15% of breast malignancies will not be visualized mammographically. In the management of a palpable breast mass, a negative mammogram must not discourage biopsy of a clinically suspicious lesion. Electronically Signed By: Alvin bansal/lenore:02/13/2021 11:49:29 letter sent: Normal Exam ACR BI-RADS Category 1: Negative 3341F
== END ==
PROVIDERS: PCP Internal Medicine; Referring Provider Internal Medicine; Visit Provider Internal Medicine
DX: Z12.31 Encounter for screening mammogram for malignant neoplasm of breast (principal); Z80.3 Family history of malignant neoplasm of breast
CPT/HCPCS: 77063; 77067

== ENCOUNTER 2021-03-29 14:20 | Emergency (ER) | payer OTHER, SELFPAY ==
[2021-03-29 14:42] VITALS: BP 139/70; PULSE 74; RESP 15; TEMP 36.6; O2SAT 98; BMI 27.4
--- NOTE | 2021-03-29 14:52 | PC.NURSE ---
analyine cleared by Dr Cortes.
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
== END 2021-03-29 16:36 | disposition home or self-care (01) ==
PROVIDERS: Emergency Provider Emergency Medicine; PCP Internal Medicine
DX: M54.6 Pain in thoracic spine (principal); R51.9 Headache, unspecified; V89.2XXA Person injured in unspecified motor-vehicle accident, traffic, initial encounter
CPT/HCPCS: 99281

== ENCOUNTER → 2022-03-27 10:18 | Outpatient (CLI) | payer MEDICARE, OTHER, SELFPAY ==
--- NOTE | 2022-03-27 | DI.MG.S_ITS ---
BILATERAL DIGITAL SCREENING MAMMOGRAM 3D/2D WITH CAD WITH AUGMENTATION: 03/27/2022 CLINICAL: Patient presents for routine screening. S/P bilateral augmentation. Family history of breast cancer. Comparison is made to exams dated: 02/13/2021 mammogram, 01/05/2020 mammogram, and 10/29/2018 mammogram - [facility]. There are scattered fibroglandular elements in both breasts. Current study was also evaluated with a Computer Aided Detection (CAD) system. Bilateral breast implants are intact. No significant masses, calcifications, or other findings are seen in either breast. There has been no significant interval change. IMPRESSION: NEGATIVE There is no mammographic evidence of malignancy. A 1 year screening mammogram is recommended. This exam was interpreted at Station ID: [id number]. NOTE: For mammograms, a report in lay terms will be sent to the patient. Approximately 15% of breast malignancies will not be visualized mammographically. In the management of a palpable breast mass, a negative mammogram must not discourage biopsy of a clinically suspicious lesion. Electronically Signed By: Uri Andrew M.D., jr/lenore:03/27/2022 13:46:43 letter sent: Normal Exam ACR BI-RADS Category 1: Negative 3341F
== END ==
PROVIDERS: PCP Internal Medicine; Referring Provider Internal Medicine; Visit Provider Internal Medicine
DX: Z12.31 Encounter for screening mammogram for malignant neoplasm of breast (principal); Z98.82 Breast implant status; Z80.3 Family history of malignant neoplasm of breast
CPT/HCPCS: 77063; 77067

== ENCOUNTER → 2022-03-28 15:19 | Outpatient (CLI) | payer MEDICARE, OTHER, SELFPAY | PROVIDERS: PCP Internal Medicine; Referring Provider Internal Medicine; Visit Provider Internal Medicine | DX: M85.89 Other specified disorders of bone density and structure, multiple sites (principal); Z78.0 Asymptomatic menopausal state | CPT/HCPCS: 77080 ==

== ENCOUNTER → 2022-05-12 14:49 | Outpatient (CLI) | payer MEDICARE, OTHER, SELFPAY | PROVIDERS: PCP Internal Medicine; Visit Provider Nurse Practitioner Family | DX: R30.0 Dysuria (principal); N89.8 Other specified noninflammatory disorders of vagina | CPT/HCPCS: 87086; 87210 ==

== ENCOUNTER → 2023-04-24 14:42 | Outpatient (CLI) | payer MEDICARE, OTHER, SELFPAY ==
--- NOTE | 2023-04-24 14:44 | DI.MG.S_ITS ---
BILATERAL DIGITAL SCREENING MAMMOGRAM 3D/2D WITH CAD WITH AUGMENTATION: 04/24/2023 CLINICAL: Patient presents for routine screening. S/P bilateral augmentation. High risk screening. Comparison is made to exams dated: 03/27/2022 mammogram, 02/13/2021 mammogram, and 01/05/2020 mammogram - . There are scattered areas of fibroglandular density in both breasts (category b / 25%-50% glandular tissue). Current study was also evaluated with a Computer Aided Detection (CAD) system. Bilateral breast implants are intact. No significant masses, calcifications, or other findings are seen in either breast. There has been no significant interval change. IMPRESSION: BENIGN There is no mammographic evidence of malignancy. A 1 year screening mammogram is recommended. Based on the Tyrer Cuzick model (a risk assessment model) the patient's lifetime risk is 8.1% and her 10 year risk is 5.6%. According to the ACR, ACS, and NCCN guidelines, an annual breast MRI exam along with mammogram is recommended if the patient's lifetime risk is 20% or greater. This exam was interpreted at Station ID: [id number]. NOTE: For mammograms, a report in lay terms will be sent to the patient. Approximately 15% of breast malignancies will not be visualized mammographically. In the management of a palpable breast mass, a negative mammogram must not discourage biopsy of a clinically suspicious lesion. Electronically Signed By: Jaime mccloud/lenore:04/24/2023 15:12:47 letter sent: Normal Exam ACR BI-RADS Category 2: Benign Finding(s) 3342F
== END ==
PROVIDERS: PCP Internal Medicine; Referring Provider Internal Medicine; Visit Provider Internal Medicine
DX: Z12.31 Encounter for screening mammogram for malignant neoplasm of breast (principal)
CPT/HCPCS: 77063; 77067

== ENCOUNTER → 2024-06-22 10:13 | Outpatient (CLI) | payer MEDICARE, OTHER, SELFPAY ==
--- NOTE | 2024-06-22 | DI.RAD.S_ITS ---
PROCEDURE: XR LUMBAR SPINE 2-3V INDICATIONS: LOW BACK PAIN TECHNIQUE: 3 views of the lumbar spine were acquired. COMPARISON: None. FINDINGS: Bones: 5 [id number] VERTEBRAE ARE PRESENT. 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 GRADE 1 ANTEROLISTHESIS OF L5 ON S1 AND GRADE 1 RETROLISTHESIS OF L3 ON 4. No vertebral body compression fractures. NO SUSPICIOUS BONY LESION. THERE IS MULTILEVEL DISC HEIGHT LOSS WORSE AT L3-L4. THE BONES ARE DIFFUSELY OSTEOPENIC. THERE IS MULTILEVEL FACET ARTHROPATHY . DEGENERATIVE DISEASE OF BOTH SI JOINTS AND HIP JOINTS. THERE IS SPACE NARROWING AT THE PUBIC SYMPHYSIS. IRREGULAR-APPEARING LOWER RIBS. Soft tissues: OVERLYING BOWEL GAS PATTERN IS NORMAL. NO SUSPICIOUS SOFT TISSUE CALCIFICATIONS. IMPRESSION: 1. NO ACUTE FRACTURE. 2. THERE IS GRADE 1 ANTEROLISTHESIS OF L5 ON S1 AND GRADE 1 RETROLISTHESIS OF L3 ON L4. 3. THERE IS MULTILEVEL FACET ARTHROPATHY AND DISC HEIGHT LOSS. 4. DEXTROCONVEX SCOLIOSIS OF THE LUMBAR SPINE. Dictated by: Matt Daley M.D. on 06/22/2024 at 11:43 Approved by: Matt Daley M.D. on 06/22/2024 at 11:56
== END ==
PROVIDERS: PCP Internal Medicine; Referring Provider Chiropractor; Visit Provider Chiropractor
DX: M47.816 Spondylosis without myelopathy or radiculopathy, lumbar region (principal); M43.17 Spondylolisthesis, lumbosacral region; M43.16 Spondylolisthesis, lumbar region; M41.9 Scoliosis, unspecified; M54.50 Low back pain, unspecified
CPT/HCPCS: 72100

== ENCOUNTER → 2024-09-21 16:39 | Outpatient (CLI) | payer MEDICARE, OTHER, SELFPAY ==
--- NOTE | 2024-09-21 16:40 | DI.MG.S_ITS ---
BILATERAL DIGITAL SCREENING MAMMOGRAM 3D/2D WITH CAD WITH AUGMENTATION: 09/21/2024 CLINICAL: Routine screening. Family history of breast cancer. Comparison is made to exams dated: 04/24/2023 mammogram, 03/27/2022 mammogram, and 02/13/2021 mammogram - [facility]. There are scattered areas of fibroglandular density (category b / 25%-50% glandular tissue). Current study was also evaluated with a Computer Aided Detection (CAD) system. Bilateral breast implants are intact. No significant masses, calcifications, or other findings are seen in either breast. There has been no significant interval change. IMPRESSION: BENIGN There is no mammographic evidence of malignancy. A 1 year screening mammogram is recommended. Based on the Tyrer Cuzick model (a risk assessment model) the patient's lifetime risk is 7.6% and her 10 year risk is 5.7%. According to the ACR, ACS, and NCCN guidelines, an annual breast MRI exam along with mammogram is recommended if the patient's lifetime risk is 20% or greater. This exam was interpreted at Station ID: [id number]. NOTE: For mammograms, a report in lay terms will be sent to the patient. Approximately 15% of breast malignancies will not be visualized mammographically. In the management of a palpable breast mass, a negative mammogram must not discourage biopsy of a clinically suspicious lesion. Electronically Signed By: Misty Grider M.D., Ph.D. luz maria/lenore:09/23/2024 17:02:06 letter sent: Normal Exam ACR BI-RADS Category 2: Benign
== END ==
LOC: MAMMO 16:39
PROVIDERS: PCP Internal Medicine; Referring Provider Internal Medicine; Visit Provider Internal Medicine
DX: Z12.31 Encounter for screening mammogram for malignant neoplasm of breast (principal); Z80.3 Family history of malignant neoplasm of breast
CPT/HCPCS: 77063; 77067

== ENCOUNTER 2024-10-01 10:06 | Emergency (ER) | payer MEDICARE, OTHER, SELFPAY ==
--- NOTE | 2024-10-01 10:24 | DI.RAD.S_ITS ---
PROCEDURE: XR KNEE LT 3V INDICATIONS: twisted knee TECHNIQUE: Very views of the knee were acquired. COMPARISON: None. FINDINGS: Bones: No fractures or dislocations. No significant patellar subluxation. No suspicious bony lesions. Soft tissues: No joint effusion. No suspicious soft tissue calcifications. IMPRESSION: No acute left knee fracture or significant joint effusion. Dictated by: Brain Kennedy M.D. on 10/01/2024 at 10:47 Approved by: Brain Kennedy M.D. on 10/01/2024 at 10:47
[2024-10-01 10:26] VITALS: BP 132/77; PULSE 71; RESP 17; TEMP 36.8; O2SAT 97; BMI 26.6
[2024-10-01] MEDS: ACETAMINOPHEN 325 MG TABLET 975 MG PO (11:46)
--- NOTE | 2024-10-01 11:47 | ED.LOWEXIN ---
HPI - Extremity Injury (Lower) <Francisca Mendez PA-C - Last Filed: 10/01/24 16:25> General Chief Complaint: Extremity Injury, Lower Stated Complaint: injury to left knee Time Seen by Provider: 10/01/24 11:38 Source: patient Mode of arrival: Wheelchair History of Present Illness HPI Narrative: Ms. Armstrong is a pleasant 74-year-old female with past medical history of hypertension and hyperlipidemia who presents to the emergency department for left knee pain after twisting it this morning. The patient slipped while getting into the car on wet leaves. Reports twisting the left knee. She did not fall or hit her head. She is now experiencing diffuse pain of the left knee. She is able to ambulate but with discomfort. She denies any other injuries, blood thinner use, abrasions, lacerations or bruises. Related Data Home Medications Medication Instructions Recorded Confirmed metoprolol succinate 50 mg 50 mg PO BID ##0 01/20/13 10/01/24 tablet,extended release 24 hr (Toprol XL) clonazepam 0.5 mg tablet 0.5 mg PO BID Anxiety 09/06/20 02/14/24 alirocumab 150 mg/mL subcutaneous 150 mg SUBCUT Q2W 10/01/24 10/01/24 pen injector (Praluent Pen) Previous Rx's Medication Instructions Recorded trazodone 50 mg tablet 50 mg PO BEDTIME #30 tabs 07/30/22 Allergies Allergy/AdvReac Type Severity Reaction Status Date / Time [id number]-AGR-PtN Reductase Allergy Intermediate Verified 10/01/24 10:27 Inhibitor [Fsxrjcf-Jlp-Suo Reductase Inhibitor] quinine Allergy Unknown RASH Verified 10/01/24 10:27 Sulfa (Sulfonamide Allergy Unknown RASH Verified 10/01/24 10:27 Antibiotics) codeine AdvReac Severe NAUSEA Verified 10/01/24 10:27 Patient History <Francisca Mendez PA-C - Last Filed: 10/01/24 16:25> Medical History Facet arthropathy, lumbar UTI (urinary tract infection) Pain of left calf Hyperlipidemia Hypertension Cardiac arrhythmia PVCs (premature ventricular contractions) Social History Smoking Status: Never smoker Smoking Status: Never smoker alcohol intake frequency: holidays/special occasions only Substance Use Type: does not use Exam <Francisca Mendez PA-C - Last Filed: 10/01/24 16:25> Narrative Exam Narrative: GENERAL: 74 year old patient appears stated age. Well-developed patient, in no acute distress. HEAD: Atraumatic. Normocephalic. EYES: Extraocular motions intact. No scleral icterus. No injection or drainage. ENT: Nose without bleeding, purulent drainage. NECK: Trachea midline. Non tender CARDIOVASCULAR: Regular rate and rhythm. RESPIRATORY: Clear to auscultation. EXTREMITIES: Generalized tenderness to palpation of the left knee without focal bony tenderness. No joint laxity. No edema or ecchymosis. No erythema or increased warmth. BACK: Nontender without deformity or crepitance. No flank tenderness. NEURO: AOx3. SKIN: No rash or erythema of visible areas Initial Vital Signs Initial Vital Signs: Vital Signs Temperature 98.3 F 10/01/24 10:26 Pulse Rate 71 10/01/24 10:26 Respiratory Rate 17 10/01/24 10:26 Blood Pressure 132/77 10/01/24 10:26 Pulse Oximetry 97 10/01/24 10:26 Oxygen Delivery Method Room Air 10/01/24 10:26 <Olivia Cardona DO - Last Filed: 10/02/24 08:07> Initial Vital Signs Initial Vital Signs: Vital Signs Temperature 98.3 F 10/01/24 10:26 Pulse Rate 71 10/01/24 10:26 Respiratory Rate 17 10/01/24 10:26 Blood Pressure 132/77 10/01/24 10:26 Pulse Oximetry 97 10/01/24 10:26 Oxygen Delivery Method Room Air 10/01/24 10:26 Course <Francisca Mendez PA-C - Last Filed: 10/01/24 16:25> Orders Ordered: Discontinued Medications Acetaminophen (Acetaminophen 325 Mg Tablet) 975 mg PO NOW ONE Stop: 10/01/24 11:40 Last Admin: 10/01/24 11:46 Dose: 975 mg Documented By: KAREN Vital Signs Vital signs: Vital Signs - 8 hr 10/01/24 10:26 10/01/24 13:01 Temperature 98.3 F Pulse Rate 71 69 Respiratory Rate 17 20 Blood Pressure 132/77 130/75 Pulse Oximetry 97 100 Oxygen Delivery Method Room Air Room Air <Olivia Cardona DO - Last Filed: 10/02/24 08:07> Orders Ordered: Discontinued Medications Acetaminophen (Acetaminophen 325 Mg Tablet) 975 mg PO NOW ONE Stop: 10/01/24 11:40 Last Admin: 10/01/24 11:46 Dose: 975 mg Documented By: KAREN Vital Signs Vital signs: Vital Signs - 8 hr 10/01/24 10:26 10/01/24 13:01 Temperature 98.3 F Pulse Rate 71 69 Respiratory Rate 17 20 Blood Pressure 132/77 130/75 Pulse Oximetry 97 100 Oxygen Delivery Method Room Air Room Air MDM - Extremity Injury (Lower) <Francisca Mendez PA-C - Last Filed: 10/01/24 16:25> Imaging Data knee x-ray: My Impression: Agree with radiologist interpretation. Radiologist's Impression: IMPRESSION: No acute left knee fracture or significant joint effusion. MDM Narrative Medical decision making narrative: 74-year-old female with past medical history of hypertension and hyperlipidemia who presents to the emergency department for left knee pain after twisting it this morning. Differential diagnosis includes but is not limited to left knee fracture, left knee soft tissue injury, left knee strain, left knee sprain, ligament tear, meniscal injury, etc.. On exam patient is in no acute distress, nontoxic-appearing, left knee with no joint laxity or bony tenderness. She has generalized soft tissue tenderness. No bruising or swelling. Left knee x-ray reveals no acute fracture or dislocation. Advised patient alternate ibuprofen and Tylenol every 4-6 hours, rest, ice, compression, elevation. She was provided with Krishna wrap and crutches in the emergency department. Provided with orthopedic follow-up. Discussed strict ED return precautions, PCP follow-up, patient is stable for discharge at this time. Discharge Plan Departure Patient Disposition: Home Clinical Impression: Left knee sprain Qualifiers: Encounter type: initial encounter Involved ligament of knee: unspecified ligament Qualified Code(s): S83.92XA - Sprain of unspecified site of left knee, initial encounter Instructions: DI for Knee Pain Activity Restrictions/Additional Instructions: Today you were evaluated for left knee pain. Your x-ray does not reveal any fracture. Please alternate ibuprofen and Tylenol every 4-6 hours as needed for pain. Please rest, ice the knee, use compressive Krishna wrap on the knee, and elevate the knee to reduce swelling. Please call [facility] for further evaluation. Please return to the emergency department for any new or worsening symptoms, numbness, tingling, etc. Prescriptions: No Action metoprolol succinate [Toprol XL] 50 MG tablet extended release 24 hr 50 mg PO BID Qty: 0 trazodone 50 mg tablet 50 mg PO BEDTIME Qty: 30 0RF clonazepam 0.5 mg tablet 0.5 mg PO BID Patient Comments: TK 1 T PO BID PRF ANXIETY Praluent Pen 150 mg/mL pen injector 150 mg SUBCUT Q2W Referrals: Rony Andrade MD [Physician] - As soon as possible Litzy White MD [Primary Care Provider] - Stand Alone Forms: Patient Portal/API/Survey ED Sign-out <Olivia Cardona DO - Last Filed: 10/02/24 08:07> Cosign ED Attending Luisature Attestation: I was available for consultation.
[2024-10-01 13:01] VITALS: BP 130/75; PULSE 69; RESP 20; O2SAT 100
== END 2024-10-01 13:28 | disposition home or self-care (01) ==
PROVIDERS: Emergency Provider Physician Assistant; PCP Internal Medicine
DX: S83.92XA Sprain of unspecified site of left knee, initial encounter (principal); X50.1XXA Overexertion from prolonged static or awkward postures, initial encounter
CPT/HCPCS: 73562; 99283

== ENCOUNTER 2025-01-11 12:54 | Emergency (ER) | payer MEDICARE, OTHER, SELFPAY ==
[2025-01-11 13:00] VITALS: BP 154/76; PULSE 76; RESP 16; TEMP 37.1; O2SAT 99; BMI 27.9
--- NOTE | 2025-01-11 13:10 | DI.RAD.S_ITS ---
PROCEDURE: XR CHEST 1V INDICATIONS: Possible stroke TECHNIQUE: One view of the chest was acquired. COMPARISON: None. FINDINGS: Surgical changes and devices: None. Lungs and pleura: Lungs are clear. No pleural effusions or pneumothorax. Mediastinum: Mediastinal contours appear normal. Heart size is normal. Bones and chest wall: No suspicious bony lesions. Overlying soft tissues appear unremarkable. IMPRESSION: No acute cardiopulmonary pathology. Dictated by: Brain Kennedy M.D. on 01/11/2025 at 13:52 Approved by: Brain Kennedy M.D. on 01/11/2025 at 13:52
--- NOTE | 2025-01-11 13:10 | DI.CT.S_ITS ---
PROCEDURE: CT STROKE INDICATIONS: Positive BE-FAST, Stroke symptoms TECHNIQUE: Noncontrast 4.5 mm thick angled axial sections acquired from the foramen magnum to the vertex, with coronal reformats. For radiation dose reduction, the following was used: automated exposure control, adjustment of mA and/or kV according to patient size. COMPARISON: None. FINDINGS: Image quality: Diagnostic. CSF spaces: Basal cisterns are patent. No extra-axial fluid collections. The ventricles are symmetric in size and shape. Brain: No acute intracranial hemorrhage or mass effect. There is cerebral volume loss for age, with resultant ventricular and sulcal prominence. There are periventricular and deep white matter chronic small vessel ischemic changes. There is intracranial internal carotid artery atherosclerosis. Skull and face: Calvarium and visualized facial bones appear intact, without suspicious lesions. Sinuses: Visualized sinuses and mastoids are clear. IMPRESSION: No acute intracranial pathology. Findings were discussed with the referring provider, Dr. Umana, by telephone on 01/11/2025 at 1:30 PM. This study fulfills neurological imaging criteria for inclusion or exclusion of acute stroke therapies based on available published neurological guidelines. Approved by: Alvin Gar M.D. on 01/11/2025 at 13:31
--- NOTE | 2025-01-11 13:10 | EKG_ITS ---
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
--- NOTE | 2025-01-11 13:12 | DI.CT.S_ITS ---
PROCEDURE: CT ANGIO HEAD AND NECK INDICATIONS: LKW 0200, dark vision headache TECHNIQUE: After the administration of intravenous contrast, 1 mm thick sections acquired from the aortic arch through the [place] of [place]. 3-dimensional wwdhmgq-wcnxmctfb-hfnwrkakqv (MIP) and/or volume rendering reformats were acquired of the central intracranial vasculature and neck separately. For radiation dose reduction, the following was used: automated exposure control, adjustment of mA and/or kV according to patient size. COMPARISON: None. FINDINGS: Image quality: Diagnostic. BRAIN: CSF spaces: Ventricles are normal in size and shape. Basal cisterns are patent. No extra-axial fluid collections. Brain: No significant abnormality of the brain can be seen. Skull and face: Calvarium and facial bones appear intact, without suspicious lesions. Orbits appear normal. Sinuses: Sinuses and mastoids are clear. HEAD CT ANGIOGRAPHY: Anterior circulation: Intracranial internal carotid arteries are normal in size and flow. The flow within the paired anterior cerebral arteries is normal and symmetric. The flow within the middle cerebral arteries is normal and symmetric. The anterior communicating artery is seen. No aneurysms are seen. Posterior circulation: Visualized portions of the vertebral arteries demonstrate normal caliber, and join to form a normal appearing basilar artery. Flow within the posterior cerebral arteries is normal and symmetric. No aneurysms are seen. NECK CT ANGIOGRAPHY: Carotid system: The great vessels demonstrate a conventional anatomy as they arise from the aortic arch. The origins of the common carotid arteries appear patent. The common carotid arteries demonstrate normal caliber and courses. The bifurcation regions are both widely patent. The internal carotid arteries demonstrate normal calibers and courses. Posterior circulation: The origins of the vertebral arteries both appear widely patent. The more superior extracranial portions of both vertebral arteries also demonstrate normal courses and calibers. They join to form a normal appearing basilar artery. Soft tissues: Visualized neck soft tissues demonstrate no suspicious abnormalities. Bones: No suspicious bony lesions. Visualized cervical spine appears normally aligned. IMPRESSION: 1. No significant intracranial arterial abnormality is seen. 2. No significant abnormality is seen within the arteries of the neck. Any quantitative measurements of stenosis were performed using NASCET criteria. Dictated by: Brain Kennedy M.D. on 01/11/2025 at 13:48 Approved by: Brain Kennedy M.D. on 01/11/2025 at 13:51
--- NOTE | 2025-01-11 14:02 | DI.MRI.S_ITS ---
PROCEDURE: MR HEAD/BRAIN WO CON INDICATIONS: viz bilateral blur, BOUCHER, eval stroke TECHNIQUE: Non-contrast axial T1 spin echo, axial T2 fast spin echo, sagittal and axial FLAIR, coronal T2 fast spin echo, axial gradient echo, axial diffusion and ADC through the brain. COMPARISON: [facility], CT, CT ANGIO HEAD AND NECK, 01/11/2025, 13:15. [facility], CT, CT STROKE, 01/11/2025, 13:15. (Additional prior imaging is not available for review from the archive at the time of this dictation.) FINDINGS: Image quality: Excellent. CSF spaces: Ventricles appear symmetric in size and shape. Basal cisterns are patent. No extra-axial fluid collections. Brain: No intracranial bleeds or mass effects. There is cerebral volume loss for age. There are periventricular and deep white matter chronic small vessel ischemic changes. Brainstem appears normal. Diffusion-weighted images show no acute infarct. No chronic ischemic insults. Normal intravascular flow voids are present. Skull and face: Calvarial bone marrow is normal in signal. Orbits are normal. Sinuses: Sinuses and mastoids are clear. IMPRESSION: No findings of acute or subacute infarction can be seen. Note is made of age-appropriate brain parenchymal volume loss and chronic small vessel ischemic changes. Dictated by: Hadley Thomas M.D. on 01/11/2025 at 14:21 Approved by: Hadley Thomas M.D. on 01/11/2025 at 14:22
[2025-01-11 17:29] LABS: Add Manual Diff / Slide Review NO; Basophils Absolute Auto 100 /uL (0-100); Basophils Percent Auto 0.7 % (0-2); Eosinophils Absolute Auto 100 /uL (0-450); Hematocrit 41.4 % (36-46); Hemoglobin 14.1 g/dL (12.0-16.0); Lymphocytes Absolute Auto 2400 /uL (1100-4500); Lymphocytes Percent Auto 30.3 % (25-40); Mean Corpuscular Volume 94.1 fL (80-100); Monocytes Absolute Auto 600 /uL (0-900); Monocytes Percent Auto 7.8 % (3-14); Neutrophils Absolute Auto 4700 /uL (1500-7000); Neutrophils Percent Auto 60.2 % (50-75); Platelet Count 276 X10^3/uL (150-400); Red Cell Distribution Width 13.1 % (11.6-14.8); White Blood Cell Count 7.8 X10^3/uL (4.5-11.0)
[2025-01-11 17:39] LABS: PTT Partial Thromboplastin Tim 33 SECONDS (25.1-36.5)
[2025-01-11 17:41] LABS: Alanine Aminotransferase 27 IU/L (<35); Albumin 4.7 g/dL (3.5-5.0); Albumin Globulin Ratio 1.5 (1.0-2.8); Alkaline Phosphatase 70 U/L (38-126); Aspartate Aminotransferase 30 IU/L (14-36); BUN Creatinine Ratio 20.6 (6-22); Bilirubin Total 0.5 mg/dL (0.2-1.3); Blood Urea Nitrogen 13 mg/dL (7-17); Calcium 9.6 mg/dL (8.4-10.2); Carbon Dioxide 26 mmol/L (22-32); Chloride 103 mmol/L (98-107); Creatine Kinase 108 U/L (30-135); Estimated Glomerular Filt Rate > 60 mL/min (>60); Globulin 3.1 g/dL (1.7-4.1); Glucose 115 mg/dL (80-110); HEMOLYSIS < 15 (0-50); Potassium 3.8 mmol/L (3.4-5.1); Sodium 137 mmol/L (137-145); Total Protein 7.8 g/dL (6.3-8.2)
[2025-01-11 17:53] LABS: Troponin I < 0.012 ng/mL (0.01-0.034)
[2025-01-11 17:55] VITALS: BP 154/89; PULSE 74; RESP 18; TEMP 36.8; O2SAT 100
--- NOTE | 2025-01-11 20:42 | ED_ITS ---
HPI - Neuro Symptoms/Deficit General Chief Complaint: Neuro Symptoms/Deficit Stated Complaint: vision loss t-1 Time Seen by Provider: 01/11/25 14:02 History of Present Illness HPI Narrative: Patient is a 74-year-old female history of heart arrhythmia presenting to day with visual changes. She reports that at 1:00 a.m. she woke up and could not see out of both eyes did not feel very good. She says the symptoms lasted for a minute or less. She was alone but did not notice any unilateral weakness. She actually tried to get up and walk did not feel quite well. Symptoms ultimately resolved completely. Came to the ED for evaluation. She denies any sort chest pain palpitations numbness tingling weakness difficulty speaking or other symptoms. No prior history of coronary artery disease. On Anticoagulants: No Related Data Home Medications Medication Instructions Recorded Confirmed metoprolol succinate 50 mg 50 mg PO BID ##0 01/20/13 01/11/25 tablet,extended release 24 hr (Toprol XL) clonazepam 0.5 mg tablet 0.5 mg PO BID Anxiety 09/06/20 01/11/25 alirocumab 150 mg/mL subcutaneous 150 mg SUBCUT Q2W 10/01/24 01/11/25 pen injector (Praluent Pen) Previous Rx's Medication Instructions Recorded trazodone 50 mg tablet 50 mg PO BEDTIME #30 tabs 07/30/22 Allergies Allergy/AdvReac Type Severity Reaction Status Date / Time Yobtobo-ONA-NcG Reductase Allergy Intermediate Verified 01/11/25 12:57 Inhibitor [Szdkric-Cvl-Lag Reductase Inhibitor] quinine Allergy Unknown RASH Verified 01/11/25 12:57 Sulfa (Sulfonamide Allergy Unknown RASH Verified 01/11/25 12:57 Antibiotics) codeine AdvReac Severe NAUSEA Verified 01/11/25 12:57 Review of Systems Hematologic/Lymphatic On Anticoagulants: No Patient History Medical History Facet arthropathy, lumbar UTI (urinary tract infection) Pain of left calf Hyperlipidemia Hypertension Cardiac arrhythmia PVCs (premature ventricular contractions) Social History Smoking Status: Never smoker Smoking Status: Never smoker alcohol intake frequency: holidays/special occasions only Exam Initial Vital Signs Initial Vital Signs: Vital Signs Temperature 98.8 F 01/11/25 13:00 Pulse Rate 76 01/11/25 13:00 Respiratory Rate 16 01/11/25 13:00 Blood Pressure 154/76 H 01/11/25 13:00 Pulse Oximetry 99 01/11/25 13:00 Oxygen Delivery Method Room Air 01/11/25 13:00 GENERAL: Alert pleasant well-appearing 74 year female and in no acute distress. HEENT: Head atraumatic,EOMI, pupils reactive, face symmetric, moist mucous membranes CARDIOVASCULAR: Regular rate and rhythm without murmurs, rubs or gallops. RESPIRATORY: Breath sounds equal bilaterally, no wheezes rales or rhonchi. ABDOMEN: Soft, nontender. Normoactive bowel sounds all 4 quadrants. No guarding or rebound. EXTREMITIES: Normal range of motion, no clubbing or edema. Neurovascularly intact NEUROLOGICAL: Alert and oriented x4.Normal gait and speech. Cranial nerves II through XII grossly intact. Good euduvr-zf-eejo, good heil-rk-vihb, strength equal bilaterally, no dysarthria or aphasia, sensation in tact to soft touch bilaterally, no visual changes, no facial droop SKIN: Warm, dry, no laceration, no petechiae, no rashes or lesions. Scores NIH Stroke Scale Level of Conciousness: Alert, keenly responsive Ask month/age: Answers both questions correctly. Open/close eyes, close hand: Performs both tasks correctly Best gaze horizontal: Normal Visual gonzales: No visual loss Facial palsy: Normal symetrical movement Left arm drift: No drift for full 10 sec Right arm drift: No drift for full 10 sec Left leg drift: No drift for full 5 sec Right leg drift: No drift for full 5 sec Limb ataxia: Absent Sensory on face/arms/legs: Normal, no sensory loss Best language: No aphasia, normal Dysarthria: Normal Extinction or inattention: No abnormality Total NIH Stroke scale score: 0 Course Orders Ordered: Discontinued Medications Ondansetron HCl (Ondansetron 4 Mg/2 Ml Inj) 4 mg IV NOW PRN PRN Reason: Nausea And Vomiting Ondansetron HCl (Ondansetron 4 Mg Odt) 4 mg SL NOW PRN PRN Reason: Nausea And Vomiting Vital Signs Vital signs: Vital Signs - 8 hr 01/11/25 21:10 Pulse Rate 74 Respiratory Rate 16 Blood Pressure 166/74 H Pulse Oximetry 97 Oxygen Delivery Method Room Air MDM - Neuro Symptoms/Deficit Lab Data 01/11/25 17:16 01/11/25 17:16 Labs: Lab Results 01/11/25 Range/Units 17:16 WBC 7.8 (4.5-11.0) X10^3/uL RBC 4.40 (4.0-5.2) X10^6/uL Hgb 14.1 (12.0-16.0) g/dL Hct 41.4 (36-46) % MCV 94.1 (80-100) fL MCH 32.0 (26-34) PG MCHC 34.0 (30-36) % RDW 13.1 (11.6-14.8) % Plt Count 276 (150-400) X10^3/uL Neut % (Auto) 60.2 (50-75) % Lymph % (Auto) 30.3 (25-40) % [place] % (Auto) 7.8 (3-14) % Eos % (Auto) 1.0 L (2-4) % Baso % (Auto) 0.7 (0-2) % Neut # (Auto) 4700 (8741-1614) /uL Lymph # (Auto) 2400 (8242-5749) /uL [place] # (Auto) 600 (0-900) /uL Eos # (Auto) 100 (0-450) /uL Baso # (Auto) 100 (0-100) /uL PT 11.0 (9.4-12.5) SECONDS INR 1.0 (0.9-1.3) APTT 33 (25.1-36.5) SECONDS Sodium 137 (137-145) mmol/L Potassium 3.8 (3.4-5.1) mmol/L Chloride 103 (98-107) mmol/L Carbon Dioxide 26 (22-32) mmol/L BUN 13 (7-17) mg/dL Creatinine 0.63 (0.52-1.04) mg/dL Estimated GFR > 60 (>60) mL/min BUN/Creatinine Ratio 20.6 (6-22) Glucose 115 H (80-110) mg/dL Calcium 9.6 (8.4-10.2) mg/dL Magnesium 2.0 (1.6-2.3) mg/dL Total Bilirubin 0.5 (0.2-1.3) mg/dL AST 30 (14-36) IU/L ALT 27 (<35) IU/L Alkaline Phosphatase 70 (38-126) U/L Total Creatine Kinase 108 (30-135) U/L Troponin I < 0.012 (0.01-0.034) ng/mL Total Protein 7.8 (6.3-8.2) g/dL Albumin 4.7 (3.5-5.0) g/dL Globulin 3.1 (1.7-4.1) g/dL Albumin/Globulin Ratio 1.5 (1.0-2.8) Imaging Data CT scan - head: Radiologist's Impression: PROCEDURE: CT STROKE INDICATIONS: Positive BE-FAST, Stroke symptoms TECHNIQUE: Noncontrast 4.5 mm thick angled axial sections acquired from the foramen magnum to the vertex, with coronal reformats. For radiation dose reduction, the following was used: automated exposure control, adjustment of mA and/or kV according to patient size. COMPARISON: None. FINDINGS: Image quality: Diagnostic. CSF spaces: Basal cisterns are patent. No extra-axial fluid collections. The ventricles are symmetric in size and shape. Brain: No acute intracranial hemorrhage or mass effect. There is cerebral volume loss for age, with resultant ventricular and sulcal prominence. There are periventricular and deep white matter chronic small vessel ischemic changes. There is intracranial internal carotid artery atherosclerosis. Skull and face: Calvarium and visualized facial bones appear intact, without suspicious lesions. Sinuses: Visualized sinuses and mastoids are clear. IMPRESSION: No acute intracranial pathology. Findings were discussed with the referring provider, Dr. Umana, by telephone on 01/11/2025 at 1:30 PM. This study fulfills neurological imaging criteria for inclusion or exclusion of acute stroke therapies based on available published neurological guidelines. Approved by: Alvin Gar M.D. on 01/11/2025 at 13:31 CTA - brain/neck: Radiologist's Impression: PROCEDURE: CT ANGIO HEAD AND NECK INDICATIONS: LKW 0200, dark vision headache TECHNIQUE: After the administration of intravenous contrast, 1 mm thick sections acquired from the aortic arch through the [place] of [place]. 3-dimensional eywxbff-mfkhtocsw-ojdoumtlfa (MIP) and/or volume rendering reformats were acquired of the central intracranial vasculature and neck separately. For radiation dose reduction, the following was used: automated exposure control, adjustment of mA and/or kV according to patient size. COMPARISON: None. FINDINGS: Image quality: Diagnostic. BRAIN: CSF spaces: Ventricles are normal in size and shape. Basal cisterns are patent. No extra-axial fluid collections. Brain: No significant abnormality of the brain can be seen. Skull and face: Calvarium and facial bones appear intact, without suspicious lesions. Orbits appear normal. Sinuses: Sinuses and mastoids are clear. HEAD CT ANGIOGRAPHY: Anterior circulation: Intracranial internal carotid arteries are normal in size and flow. The flow within the paired anterior cerebral arteries is normal and symmetric. The flow within the middle cerebral arteries is normal and symmetric. The anterior communicating artery is seen. No aneurysms are seen. Posterior circulation: Visualized portions of the vertebral arteries demonstrate normal caliber, and join to form a normal appearing basilar artery. Flow within the posterior cerebral arteries is normal and symmetric. No aneurysms are seen. NECK CT ANGIOGRAPHY: Carotid system: The great vessels demonstrate a conventional anatomy as they arise from the aortic arch. The origins of the common carotid arteries appear patent. The common carotid arteries demonstrate normal caliber and courses. The bifurcation regions are both widely patent. The internal carotid arteries demonstrate normal calibers and courses. Posterior circulation: The origins of the vertebral arteries both appear widely patent. The more superior extracranial portions of both vertebral arteries also demonstrate normal courses and calibers. They join to form a normal appearing basilar artery. Soft tissues: Visualized neck soft tissues demonstrate no suspicious abnormalities. Bones: No suspicious bony lesions. Visualized cervical spine appears normally aligned. IMPRESSION: 1. No significant intracranial arterial abnormality is seen. 2. No significant abnormality is seen within the arteries of the neck. Any quantitative measurements of stenosis were performed using NASCET criteria. Dictated by: Brain Kennedy M.D. on 01/11/2025 at 13:48 MR brain: Radiologist's Impression: PROCEDURE: MR HEAD/BRAIN WO CON INDICATIONS: viz bilateral blur, BOUCHER, eval stroke TECHNIQUE: Non-contrast axial T1 spin echo, axial T2 fast spin echo, sagittal and axial FLAIR, coronal T2 fast spin echo, axial gradient echo, axial diffusion and ADC through the brain. COMPARISON: [facility], CT, CT ANGIO HEAD AND NECK, 01/11/2025, 13:15. Merged With [facility], CT, CT STROKE, 01/11/2025, 13:15. (Additional prior imaging is not available for review from the archive at the time of this dictation.) FINDINGS: Image quality: Excellent. CSF spaces: Ventricles appear symmetric in size and shape. Basal cisterns are patent. No extra-axial fluid collections. Brain: No intracranial bleeds or mass effects. There is cerebral volume loss for age. There are periventricular and deep white matter chronic small vessel ischemic changes. Brainstem appears normal. Diffusion-weighted images show no acute infarct. No chronic ischemic insults. Normal intravascular flow voids are present. Skull and face: Calvarial bone marrow is normal in signal. Orbits are normal. Sinuses: Sinuses and mastoids are clear. IMPRESSION: No findings of acute or subacute infarction can be seen. Note is made of age-appropriate brain parenchymal volume loss and chronic small vessel ischemic changes. Dictated by: Hadley Thomas M.D. on 01/11/2025 at 14:21 Chest x-ray: Radiologist's Impression: PROCEDURE: XR CHEST 1V INDICATIONS: Possible stroke TECHNIQUE: One view of the chest was acquired. COMPARISON: None. FINDINGS: Surgical changes and devices: None. Lungs and pleura: Lungs are clear. No pleural effusions or pneumothorax. Mediastinum: Mediastinal contours appear normal. Heart size is normal. Bones and chest wall: No suspicious bony lesions. Overlying soft tissues appear unremarkable. IMPRESSION: No acute cardiopulmonary pathology. Dictated by: Brain Kennedy M.D. on 01/11/2025 at 13:52 ECG Data Attestation: I personally reviewed and interpreted this ECG as follows: Prior ECG tracings: available for review Interpretation: Normal sinus rhythm rate 72 artifact noted no ischemia similar to priors MDM Narrative Medical decision making narrative: [facility] CC: Blurry vision Complicating co-morbidities: On metoprolol for heart rate arrhythmia but no CAD Medical records reviewed: Yes Differential considered: CVA TIA, ophthalmic probable Exam documented above, pertinent findings include: Alert well-appearing 74-year-old female NIH stroke scale 0 Lab Test results independently reviewed as above. Pertinent findings: CBC no leukocytosis or anemia CMP no electrolyte abnormality no MAYTE Troponin negative Independently reviewed EKG as above no ischemia Imaging studies independently reviewed: Head CT no intracranial abnormality CT angio no large vessel occlusion MRI no evidence of CVA Chest x-ray negative Treatments: None Re-evaluations: No recurrence of symptoms Discussion: Patient is 74-year-old female who had bilateral visual loss for less than 1 minute last evening. Went to bed normal woke up had trouble seeing did not feel very well. But it does not sound like she had any other focal deficits and symptoms only lasted less than a minute. She has had full complete workup in the emergency department including an MRI which did not show any evidence of stroke. Symptoms are also not consistent with a CVA or TIA. No concern for retinal detachment or ocular abnormality. At this time recommend follow-up Discharge Plan Departure Patient Disposition: Home Clinical Impression: Abnormal vision Instructions: DI for Visual Field Disturbances Activity Restrictions/Additional Instructions: *You have been diagnosed with visual abnormality *What to do: At this time workup in the emergency department is overall reassuring. No concern for stroke. Please follow-up with your provider *Continue to take medications as directed Aspirin 81 mg daily if you choose *Follow up with your primary care provider in 2-3 days or call [phone] *Return to ER if you should have weakness difficulty speaking facial droop or any new, worsening or concerning symptoms Prescriptions: No Action metoprolol succinate [Toprol XL] 50 MG tablet extended release 24 hr 50 mg PO BID Qty: 0 trazodone 50 mg tablet 50 mg PO BEDTIME Qty: 30 0RF clonazepam 0.5 mg tablet 0.5 mg PO BID Patient Comments: TK 1 T PO BID PRF ANXIETY Praluent Pen 150 mg/mL pen injector 150 mg SUBCUT Q2W Referrals: Litzy White MD [Primary Care Provider] - Stand Alone Forms: Patient Portal/API/Survey
[2025-01-11 21:10] VITALS: BP 166/74; PULSE 74; RESP 16; O2SAT 97
== END 2025-01-11 21:10 | disposition home or self-care (01) ==
PROVIDERS: Emergency Medicine; Emergency Provider Emergency Medicine; PCP Internal Medicine
DX: H53.9 Unspecified visual disturbance (principal); R29.700 NIHSS score 0; R51.9 Headache, unspecified; I10 Essential (primary) hypertension
CPT/HCPCS: 70450; 70496; 70498; 70551; 71045; 80053; 82550; 83735; 84484; 85025; 85610; 85730; 93005; 93010; 99281; 99284; Q9967

== ENCOUNTER → 2025-01-25 13:18 | Outpatient (CLI) | payer MEDICARE, OTHER, SELFPAY ==
--- NOTE | 2025-01-25 13:21 | DI.RAD.S_ITS ---
PROCEDURE: XR DEXA AXIAL SKELETON INDICATIONS: f/u osteopenia COMPARISON: [facility], , XR DEXA AXIAL SKELETON, 03/28/2022, 15:38. FINDINGS: Lumbar Spine: Bone mineral density 0.869 g/cm2, T score -1.6. There is interval 3.2% increase in total lumbar spine bone mineral density. Left Femoral Neck: Bone mineral density 0.596 g/cm2, T score -2.3. Left Hip: Bone mineral density 0.713 g/cm2, T score -1.9. There is interval 1.6% decrease in left hip bone mineral density. Fracture Risk Calculation (when applicable): 10-year fracture risk of a major osteoporotic fracture 14 percent and of a hip fracture 3.5 percent. (T score greater or equal to -1.0 to: NORMAL) (T score from -1.1 to -2.4: OSTEOPENIA) (T score less than or equal to -2.5: OSTEOPOROSIS) IMPRESSION: Osteopenia with increased 10 year fracture risk. Follow-up guidelines as follows: Osteoporosis: Consider a repeat DEXA and Vertebral Fracture Assessment (VFA) exam in 2 years or sooner if medically necessary, to reassess this patient's status. Osteopenia: Consider a repeat DEXA in 2-3 years to reassess this patient's status, or if there is a new clinical indication. Normal: Consider a repeat DEXA in 5 years or sooner, or if there is a new clinical indication. All treatment decisions require clinical judgment and consideration of individual patient factors, including patient preferences, comorbidities, previous drug use, risk factors not captured in the FRAX model (e.g., frailty, falls, vitamin D deficiency, increased bone turnover, interval significant decline in bone density ) and possible under- or over-estimation of fracture risk by FRAX. In addition, the NOF Guide recommends that FDA-approved medical therapies be considered in postmenopausal women and men age >= 50 years with a: * Hip or vertebral (clinical or morphometric) fracture * T-score of <=-2.5 at the spine or hip * Ten-year fracture probability by FRAX of >= 3% for hip fracture or >=20% for major osteoporotic fracture. Dictated by: Brain Kennedy M.D. on 01/25/2025 at 15:30 Approved by: Brain Kennedy M.D. on 01/25/2025 at 15:30
== END ==
PROVIDERS: PCP Internal Medicine; Referring Provider Nurse Practitioner; Visit Provider Internal Medicine
DX: Z78.0 Asymptomatic menopausal state (principal); M85.89 Other specified disorders of bone density and structure, multiple sites
CPT/HCPCS: 77080

== ENCOUNTER → 2025-09-23 | Outpatient (CLI) | payer MEDICARE, OTHER, SELFPAY ==
--- NOTE | 2025-09-23 12:53 | DI.RAD.S_ITS ---
PROCEDURE: XR CALCANEOUS RT MIN 2V INDICATIONS: RT HEEL PAIN TECHNIQUE: Two views of the calcaneus were acquired. COMPARISON: None. FINDINGS: Bones: Mild pes planus alignment, with weight-bearing. No fractures or dislocations. No suspicious bony lesions. Retrocalcaneal plantar bone spurs. Soft tissues: No suspicious calcifications. Achilles tendon appears normal. IMPRESSION: 1. Pes planus alignment. 2. Calcaneal enthesopathy. Dictated by: Wilmer Rodríguez [facility] Interpreted: Brain Kennedy MD on 09/23/2025 at 13:06 Transcribed by: ESTER on 09/23/2025 at 13:07 Approved by: Brain Kennedy M.D. on 09/23/2025 at 14:51
== END ==
PROVIDERS: PCP Internal Medicine; Referring Provider Podiatrist; Visit Provider Podiatrist
DX: M77.31 Calcaneal spur, right foot (principal); M79.671 Pain in right foot; M21.41 Flat foot [pes planus] (acquired), right foot
CPT/HCPCS: 73650